=== PATIENT | female | born 1960 | race Caucasian/White ===

== ENCOUNTER 2017-12-25 08:30 | Outpatient (CLI) | payer OTHER | END 2017-12-25 11:40 | disposition home or self-care (01) | LOC: NUCLEAR 08:30 | DX: I49.3 Ventricular premature depolarization (principal); I49.1 Atrial premature depolarization; I25.10 Atherosclerotic heart disease of native coronary artery without angina pectoris | CPT/HCPCS: 78452; 93017; A9500 ==